=== PATIENT | female | born 1965 | race African-American/Black ===

== ENCOUNTER 2025-09-12 10:18 | Inpatient (IN) | payer MEDICAID ==
[2025-09-12 11:23] LABS: #Basophils Less than 0.03 10x3/uL (0.0-0.2); #Eosinophils 0.19 10x3/uL (0.0-0.5); #Monocytes 0.45 10x3/uL (0.0-1.1); #Neutrophils 2.80 10x3/uL (1.5-8.4); %Basophils 0.3 % (0.0-2.0); %Eosinophils 3.3 % (0.0-6.0); %Lymphocytes 39.3 % (18.0-47.0); %Monocytes 7.9 % (0.0-10.0); %Neutrophils 48.9 % (40.0-75.0); Hematocrit 39.3 % (34.9-44.5); Hemoglobin 12.3 g/dL (12.0-15.5); Mean Corpuscular Hemoglobin 24.3 pg (27.0-33.0); Mean Corpuscular Volume 77.7 fL (81.6-98.3); Platelet Count 205 10x3/uL (150-450); Red Blood Cell (RBC) Count 5.06 10x6/uL (3.90-5.03); White Blood Cell (WBC) Count 5.73 10x3/uL (3.5-10.5)
[2025-09-12] MEDS ORDERED: Iopamidol 370 76% 100 ML VIAL ONE (11:27)
[2025-09-12 11:36] LABS: INR-International Normal Ratio 0.9; Prothrombin Time 10.4 sec (9.5-12.1)
[2025-09-12 11:38] LABS: ALT (SGPT) 16 U/L (Less than 34); AST (SGOT) 19 U/L (11-34); Albumin 3.7 g/dL (3.1-4.5); Alkaline Phosphatase 142 U/L (40-110); Anion Gap 16 mmol/L (10-20); BUN (Urea Nitrogen) 15 mg/dL (9.8-20.1); Bilirubin, Total 0.5 mg/dL (0.3-1.2); Calc. Creatinine Clearance 0 mL/min (70-130); Calcium 9.4 mg/dL (7.8-10.44); Carbon Dioxide 25 mmol/L (22-29); Chloride 101 mmol/L (98-107); Globulin 3.1 g/dL (2.4-3.5); Glucose 395 mg/dL (70-105); Potassium 5.5 mmol/L (3.5-5.1); Sodium 136 mmol/L (136-145)
[2025-09-12 11:40] LABS: PTT Less than 20.0 sec (22.0-33.0)
[2025-09-12 11:41] LABS: Acetaminophen Less than 10 mcg/mL (Less than 10); Salicylate Less than 8.0 mg/dL (Less than 8.0)
[2025-09-12 11:45] LABS: Troponin I Less than 0.010 ng/mL (< 0.028)
[2025-09-12] MEDS ORDERED: Albuterol 2.5 MG (3 mL) NEB ONE (12:10)
[2025-09-12 12:42] LABS: Glucose, Urine (Dipstick) >=1000 mg/dL (Negative); Leukocyte Negative (Negative); Protein, Urine (Dipstick) 15 mg/dl (Neg-Trace); Specific Gravity, Urine 1.005 (1.005-1.030)
[2025-09-12 12:50] LABS: Cocaine Metabolite Screen Negative (Negative); THC/Cannabinoid Screen Negative (Negative); Tricyclic Screen PRELIM POSITIVE (Negative)
[2025-09-12 12:58] LABS: Bacteria/HPF None Seen HPF (None Seen); CAUTI Indications for Culture Alt mental st,lethar; RBC/HPF 0-3 HPF (0-3); Urine Culture Reflex No No; WBC/HPF 0-3 HPF (0-3)
[2025-09-12] MEDS ORDERED: INSULIN ASPART 100 UNIT/ML SQ PRN (14:53)
[2025-09-12] MEDS ORDERED: INSULN SQ PRN (14:53)
[2025-09-12] MEDS ORDERED: [UNRECOGNIZED DRUG - OTHER] SQ PRN (14:53)
[2025-09-12] MEDS ORDERED: Albuterol 2.5 MG (3 mL) NEB NEB PRN (14:59)
[2025-09-12] MEDS ORDERED: Gabapentin 300 MG CAP PO SCH (15:00)
[2025-09-12] MEDS ORDERED: Acetaminophen 325 MG TAB PO PRN (17:27)
[2025-09-12] MEDS ORDERED: Dextrose 50% Abboject 50 ML SYRINGE SLOW IVP PRN (17:28)
[2025-09-12] MEDS ORDERED: Glucagon 1 MG/ML KIT IM PRN (17:28)
[2025-09-12 22:28] VITALS: BMI 43.0
[2025-09-13] MEDS: Gabapentin 300 MG CAP PO SCH ×2 (01:13→09:46)
[2025-09-13 05:56] LABS: #Basophils Less than 0.03 10x3/uL (0.0-0.2); #Eosinophils 0.20 10x3/uL (0.0-0.5); #Monocytes 0.54 10x3/uL (0.0-1.1); #Neutrophils 3.07 10x3/uL (1.5-8.4); %Basophils 0.3 % (0.0-2.0); %Eosinophils 3.2 % (0.0-6.0); %Lymphocytes 38.9 % (18.0-47.0); %Monocytes 8.6 % (0.0-10.0); %Neutrophils 48.7 % (40.0-75.0); Hematocrit 35.9 % (34.9-44.5); Hemoglobin 11.3 g/dL (12.0-15.5); Mean Corpuscular Hemoglobin 24.3 pg (27.0-33.0); Mean Corpuscular Volume 77.2 fL (81.6-98.3); Platelet Count 257 10x3/uL (150-450); Red Blood Cell (RBC) Count 4.65 10x6/uL (3.90-5.03); White Blood Cell (WBC) Count 6.30 10x3/uL (3.5-10.5)
[2025-09-13 06:09] LABS: INR-International Normal Ratio 1.0; Prothrombin Time 10.9 sec (9.5-12.1)
[2025-09-13 06:12] LABS: Anion Gap 13 mmol/L (10-20); BUN (Urea Nitrogen) 14 mg/dL (9.8-20.1); Calc. Creatinine Clearance 108 mL/min (70-130); Calcium 9.1 mg/dL (7.8-10.44); Carbon Dioxide 28 mmol/L (22-29); Chloride 105 mmol/L (98-107); Glucose 143 mg/dL (70-105); Potassium 3.6 mmol/L (3.5-5.1); Sodium 142 mmol/L (136-145)
[2025-09-13] MEDS: Mometasone 100 MCG/Formoterol 5 MCG 60 PUFF AEROSOL INH SCH (08:48)
[2025-09-13] MEDS: Pantoprazole 40 MG DR.TAB PO SCH (09:45)
[2025-09-13] MEDS: Lisinopril 20 MG TAB PO SCH (09:45)
[2025-09-13] MEDS: Lantus 1000 UNITS/10 ML VIAL SC SCH (09:46)
[2025-09-13] MEDS: FLU (Fluarix Triv) 25-26 (6MOS UP)/PF 45 MCG/0.5 ML Syringe IM ONE (09:47)
[2025-09-14 04:11] LABS: #Basophils 0.03 10x3/uL (0.0-0.2); #Eosinophils 0.20 10x3/uL (0.0-0.5); #Monocytes 0.68 10x3/uL (0.0-1.1); #Neutrophils 5.05 10x3/uL (1.5-8.4); %Basophils 0.4 % (0.0-2.0); %Eosinophils 2.4 % (0.0-6.0); %Lymphocytes 28.0 % (18.0-47.0); %Monocytes 8.2 % (0.0-10.0); %Neutrophils 60.8 % (40.0-75.0); Hematocrit 34.3 % (34.9-44.5); Hemoglobin 10.8 g/dL (12.0-15.5); Mean Corpuscular Hemoglobin 24.4 pg (27.0-33.0); Mean Corpuscular Volume 77.4 fL (81.6-98.3); Platelet Count 223 10x3/uL (150-450); Red Blood Cell (RBC) Count 4.43 10x6/uL (3.90-5.03); White Blood Cell (WBC) Count 8.30 10x3/uL (3.5-10.5)
[2025-09-14 04:25] LABS: Anion Gap 12 mmol/L (10-20); BUN (Urea Nitrogen) 18 mg/dL (9.8-20.1); Calc. Creatinine Clearance 112 mL/min (70-130); Calcium 8.7 mg/dL (7.8-10.44); Carbon Dioxide 26 mmol/L (22-29); Chloride 104 mmol/L (98-107); Glucose 189 mg/dL (70-105); Potassium 3.7 mmol/L (3.5-5.1); Sodium 138 mmol/L (136-145)
[2025-09-14 04:41] LABS: INR-International Normal Ratio 1.0; Prothrombin Time 9.9 sec (9.5-12.1)
[2025-09-15 05:03] LABS: #Basophils Less than 0.03 10x3/uL (0.0-0.2); #Eosinophils 0.19 10x3/uL (0.0-0.5); #Monocytes 0.49 10x3/uL (0.0-1.1); #Neutrophils 3.05 10x3/uL (1.5-8.4); %Basophils 0.4 % (0.0-2.0); %Eosinophils 3.4 % (0.0-6.0); %Lymphocytes 33.6 % (18.0-47.0); %Monocytes 8.7 % (0.0-10.0); %Neutrophils 53.7 % (40.0-75.0); Hematocrit 34.6 % (34.9-44.5); Hemoglobin 10.8 g/dL (12.0-15.5); Mean Corpuscular Hemoglobin 24.5 pg (27.0-33.0); Mean Corpuscular Volume 78.6 fL (81.6-98.3); Platelet Count 246 10x3/uL (150-450); Red Blood Cell (RBC) Count 4.40 10x6/uL (3.90-5.03); White Blood Cell (WBC) Count 5.66 10x3/uL (3.5-10.5)
[2025-09-15 05:13] LABS: INR-International Normal Ratio 1.4; Prothrombin Time 13.9 sec (9.5-12.1)
[2025-09-15 05:17] LABS: Anion Gap 12 mmol/L (10-20); BUN (Urea Nitrogen) 25 mg/dL (9.8-20.1); Calc. Creatinine Clearance 111 mL/min (70-130); Calcium 9.4 mg/dL (7.8-10.44); Carbon Dioxide 27 mmol/L (22-29); Chloride 107 mmol/L (98-107); Glucose 165 mg/dL (70-105); Potassium 4.0 mmol/L (3.5-5.1); Sodium 142 mmol/L (136-145)
[2025-09-16 06:33] LABS: #Basophils Less than 0.03 10x3/uL (0.0-0.2); #Eosinophils 0.24 10x3/uL (0.0-0.5); #Monocytes 0.47 10x3/uL (0.0-1.1); #Neutrophils 2.52 10x3/uL (1.5-8.4); %Basophils 0.4 % (0.0-2.0); %Eosinophils 4.3 % (0.0-6.0); %Lymphocytes 42.2 % (18.0-47.0); %Monocytes 8.3 % (0.0-10.0); %Neutrophils 44.6 % (40.0-75.0); Hematocrit 33.4 % (34.9-44.5); Hemoglobin 10.5 g/dL (12.0-15.5); Mean Corpuscular Hemoglobin 24.5 pg (27.0-33.0); Mean Corpuscular Volume 78.0 fL (81.6-98.3); Platelet Count 247 10x3/uL (150-450); Red Blood Cell (RBC) Count 4.28 10x6/uL (3.90-5.03); White Blood Cell (WBC) Count 5.64 10x3/uL (3.5-10.5)
[2025-09-16 06:44] LABS: INR-International Normal Ratio 1.8; Prothrombin Time 18.3 sec (9.5-12.1)
[2025-09-16 06:47] LABS: Anion Gap 10 mmol/L (10-20); BUN (Urea Nitrogen) 21 mg/dL (9.8-20.1); Calc. Creatinine Clearance 145 mL/min (70-130); Calcium 9.1 mg/dL (7.8-10.44); Carbon Dioxide 27 mmol/L (22-29); Chloride 107 mmol/L (98-107); Glucose 106 mg/dL (70-105); Potassium 4.2 mmol/L (3.5-5.1); Sodium 140 mmol/L (136-145)
[2025-09-17] MEDS: HYDROcodone/Acetaminophen 10/325 mg Tablet PO PRN (04:38)
[2025-09-17 05:09] LABS: #Basophils Less than 0.03 10x3/uL (0.0-0.2); #Eosinophils 0.20 10x3/uL (0.0-0.5); #Monocytes 0.47 10x3/uL (0.0-1.1); #Neutrophils 2.34 10x3/uL (1.5-8.4); %Basophils 0.4 % (0.0-2.0); %Eosinophils 3.9 % (0.0-6.0); %Lymphocytes 40.9 % (18.0-47.0); %Monocytes 9.1 % (0.0-10.0); %Neutrophils 45.5 % (40.0-75.0); Hematocrit 34.0 % (34.9-44.5); Hemoglobin 10.6 g/dL (12.0-15.5); Mean Corpuscular Hemoglobin 24.3 pg (27.0-33.0); Mean Corpuscular Volume 78.0 fL (81.6-98.3); Platelet Count 242 10x3/uL (150-450); Red Blood Cell (RBC) Count 4.36 10x6/uL (3.90-5.03); White Blood Cell (WBC) Count 5.14 10x3/uL (3.5-10.5)
[2025-09-17 05:17] LABS: INR-International Normal Ratio 2.5; Prothrombin Time 24.8 sec (9.5-12.1)
[2025-09-17 05:20] LABS: Anion Gap 12 mmol/L (10-20); BUN (Urea Nitrogen) 23 mg/dL (9.8-20.1); Calc. Creatinine Clearance 127 mL/min (70-130); Calcium 9.2 mg/dL (7.8-10.44); Carbon Dioxide 25 mmol/L (22-29); Chloride 106 mmol/L (98-107); Glucose 197 mg/dL (70-105); Potassium 4.3 mmol/L (3.5-5.1); Sodium 139 mmol/L (136-145)
[2025-09-18 05:07] LABS: #Basophils Less than 0.03 10x3/uL (0.0-0.2); #Eosinophils 0.21 10x3/uL (0.0-0.5); #Monocytes 0.54 10x3/uL (0.0-1.1); #Neutrophils 2.97 10x3/uL (1.5-8.4); %Basophils 0.4 % (0.0-2.0); %Eosinophils 3.8 % (0.0-6.0); %Lymphocytes 32.3 % (18.0-47.0); %Monocytes 9.7 % (0.0-10.0); %Neutrophils 53.4 % (40.0-75.0); Hematocrit 34.6 % (34.9-44.5); Hemoglobin 10.8 g/dL (12.0-15.5); Mean Corpuscular Hemoglobin 24.6 pg (27.0-33.0); Mean Corpuscular Volume 78.8 fL (81.6-98.3); Platelet Count 276 10x3/uL (150-450); Red Blood Cell (RBC) Count 4.39 10x6/uL (3.90-5.03); White Blood Cell (WBC) Count 5.55 10x3/uL (3.5-10.5)
[2025-09-18 05:26] LABS: Anion Gap 12 mmol/L (10-20); BUN (Urea Nitrogen) 27 mg/dL (9.8-20.1); Calc. Creatinine Clearance 107 mL/min (70-130); Calcium 9.0 mg/dL (7.8-10.44); Carbon Dioxide 27 mmol/L (22-29); Chloride 107 mmol/L (98-107); Glucose 157 mg/dL (70-105); Potassium 4.5 mmol/L (3.5-5.1); Sodium 141 mmol/L (136-145)
[2025-09-18 06:02] LABS: INR-International Normal Ratio 2.9; Prothrombin Time 29.1 sec (9.5-12.1)
[2025-09-19 04:28] LABS: #Basophils Less than 0.03 10x3/uL (0.0-0.2); #Eosinophils 0.19 10x3/uL (0.0-0.5); #Monocytes 0.55 10x3/uL (0.0-1.1); #Neutrophils 2.51 10x3/uL (1.5-8.4); %Basophils 0.4 % (0.0-2.0); %Eosinophils 3.5 % (0.0-6.0); %Lymphocytes 39.1 % (18.0-47.0); %Monocytes 10.2 % (0.0-10.0); %Neutrophils 46.4 % (40.0-75.0); Hematocrit 32.7 % (34.9-44.5); Hemoglobin 10.3 g/dL (12.0-15.5); Mean Corpuscular Hemoglobin 24.6 pg (27.0-33.0); Mean Corpuscular Volume 78.0 fL (81.6-98.3); Platelet Count 277 10x3/uL (150-450); Red Blood Cell (RBC) Count 4.19 10x6/uL (3.90-5.03); White Blood Cell (WBC) Count 5.40 10x3/uL (3.5-10.5)
[2025-09-19 04:40] LABS: Anion Gap 14 mmol/L (10-20); BUN (Urea Nitrogen) 24 mg/dL (9.8-20.1); Calc. Creatinine Clearance 124 mL/min (70-130); Calcium 8.5 mg/dL (7.8-10.44); Carbon Dioxide 23 mmol/L (22-29); Chloride 108 mmol/L (98-107); Glucose 113 mg/dL (70-105); Potassium 4.1 mmol/L (3.5-5.1); Sodium 141 mmol/L (136-145)
[2025-09-19 04:47] LABS: INR-International Normal Ratio 3.1; Prothrombin Time 30.5 sec (9.5-12.1)
[2025-09-19 12:19] VITALS: BP 129/82; TEMP 98.1
== END 2025-09-19 13:15 | disposition home health service (06) | DRG 312 ==
LOC: CSHERS 10:18 → CSHERHOLD 14:29 → CSHTELE 20:35 → OBSVTOIN 09-13 14:35
PROVIDERS: ADMIT Hospitalist; ATTEND Internal Medicine
PROC: XX20X89 Monitoring of Brain Electrical Activity, Computer-aided Detection and Notification, New Technology Group 9 (ICD-10-PCS; principal; 2025-09-13)
PROC: 3E0234Z Introduction of Serum, Toxoid and Vaccine into Muscle, Percutaneous Approach (ICD-10-PCS; 2025-09-13)
DX: I95.1 Orthostatic hypotension (principal); Z68.41 Body mass index [BMI] 40.0-44.9, adult; B35.8 Other dermatophytoses; E11.40 Type 2 diabetes mellitus with diabetic neuropathy, unspecified; M19.90 Unspecified osteoarthritis, unspecified site; J45.909 Unspecified asthma, uncomplicated; K21.9 Gastro-esophageal reflux disease without esophagitis; E66.01 Morbid (severe) obesity due to excess calories; I10 Essential (primary) hypertension; E11.65 Type 2 diabetes mellitus with hyperglycemia; E87.5 Hyperkalemia; F41.9 Anxiety disorder, unspecified; F32.A Depression, unspecified; Z60.2 Problems related to living alone; E78.5 Hyperlipidemia, unspecified; F32.9 Major depressive disorder, single episode, unspecified; Z90.49 Acquired absence of other specified parts of digestive tract; Z86.718 Personal history of other venous thrombosis and embolism; Z90.710 Acquired absence of both cervix and uterus; Z98.890 Other specified postprocedural states; Z83.3 Family history of diabetes mellitus; Z88.2 Allergy status to sulfonamides; Z79.01 Long term (current) use of anticoagulants; Z79.899 Other long term (current) drug therapy; Z79.52 Long term (current) use of systemic steroids; Z79.4 Long term (current) use of insulin; Z23 Encounter for immunization
CPT/HCPCS: 36415; 36416; 70450; 70496; 70498; 70551; 71045; 80048; 80053; 80306; 80307; 81001; 84484; 85025; 85610; 85730; 93005; 94640; 94644; 94664; 94760; 96374; G0378; J1815; J7611; Q9967